=== PATIENT | female | born 1955 | race Caucasian/White ===

== ENCOUNTER → 2016-08-01 | Outpatient (CLI) | payer BC | LOC: LAB 10:19 | DX: E78.2 Mixed hyperlipidemia (principal) ==

== ENCOUNTER 2016-08-07 10:45 | Outpatient (RCR) | payer BC | END 2016-09-26 13:07 | disposition home or self-care (01) | LOC: PT 10:45 | DX: M25.512 Pain in left shoulder (principal); M25.511 Pain in right shoulder ==

== ENCOUNTER → 2016-09-27 | Outpatient (CLI) | payer BC | LOC: LAB 10:03 | DX: E11.9 Type 2 diabetes mellitus without complications (principal) ==

== ENCOUNTER → 2017-02-27 | Outpatient (CLI) | payer BC | LOC: MAMMO 11:52 | DX: Z12.31 Encounter for screening mammogram for malignant neoplasm of breast (principal) | CPT/HCPCS: G0202 ==

== ENCOUNTER → 2017-03-27 | Outpatient (CLI) | payer BC ==
[2017-03-27 12:16] LABS: ALBUMIN 4.5 g/dL (3.5-5.0); BUN/CREATININE RATIO 15.3 (6.0-26.0); CALCIUM 10.5 mg/dL (8.4-10.2); POTASSIUM 4.3 mmol/L (3.6-5.0); TOTAL BILIRUBIN 0.7 mg/dL (0.2-1.3); TOTAL PROTEIN 7.7 g/dL (6.3-8.2)
== END ==
LOC: LAB 10:44
PROVIDERS: Nurse Practitioner Family
DX: Z01.419 Encounter for gynecological examination (general) (routine) without abnormal findings (principal); E11.9 Type 2 diabetes mellitus without complications; I10 Essential (primary) hypertension; E03.4 Atrophy of thyroid (acquired)

== ENCOUNTER → 2018-03-11 | Outpatient (CLI) | payer BC | LOC: MAMMO 11:30 | DX: Z12.31 Encounter for screening mammogram for malignant neoplasm of breast (principal) ==

== ENCOUNTER → 2019-03-15 | Outpatient (CLI) | payer BC | LOC: MAMMO 13:00 | DX: Z12.31 Encounter for screening mammogram for malignant neoplasm of breast (principal) ==

== ENCOUNTER → 2019-03-18 | Outpatient (CLI) | payer BC ==
[2019-03-18 10:13] LABS: EOS # 0.3 (0.04-0.40); HEMATOCRIT 39.8 % (37.0-47.0); HEMOGLOBIN 13.2 g/dL (12.5-16.0); LYMPH# 2.2 (1.50-4.00); MEAN CELL VOLUME 93 fl (78-100); MEAN CORPUSCULAR HEMOGLOBIN 31 pg (27-31); MEAN CORPUSCULAR HGB CONC 33 g/dL (33-37); MEAN PLATELET VOLUME 9.5 fl (7.4-10.4); MONO # 0.5 (0.20-0.80); PLATELET COUNT 317 K/mm3 (130-400); RED BLOOD COUNT 4.29 M/mm3 (4.10-5.30); RED CELL DISTRIBUTION WIDTH 13.2 % (11.5-14.5)
[2019-03-18 10:26] LABS: ALBUMIN 4.6 g/dL (3.4-4.8); POTASSIUM 3.9 mmol/L (3.5-5.1)
[2019-03-18 10:27] LABS: CALCIUM 10.1 mg/dL (8.3-10.5)
[2019-03-18 10:29] LABS: TOTAL PROTEIN 7.8 g/dL (6.2-8.1)
[2019-03-18 10:31] LABS: TOTAL BILIRUBIN 0.7 mg/dL (0.2-1.2)
[2019-03-18 10:32] LABS: URINE APPEARANCE CLEAR; URINE BILIRUBIN NEGATIVE (NEGATIVE); URINE BLOOD 50 ery/uL (NEGATIVE); URINE COLOR YELLOW; URINE GLUCOSE NEGATIVE (NEGATIVE); URINE KETONE NEGATIVE (NEGATIVE); URINE LEUKOCYTE ESTERASE NEGATIVE (NEGATIVE); URINE NITRATE NEGATIVE (NEGATIVE); URINE PROTEIN(semi-quant) TRACE mg/dL (NEGATIVE); URINE UROBILINOGEN NORMAL (NORMAL)
[2019-03-18 23:50] LABS: CREATININE OTHER SOURCE 34 mg/dL (())
== END ==
LOC: LAB 09:59
PROVIDERS: Internal Medicine
DX: Z00.00 Encounter for general adult medical examination without abnormal findings (principal)

== ENCOUNTER → 2020-01-31 | Outpatient (CLI) | payer MEDICARE, BC ==
[2020-01-31 10:49] LABS: ALBUMIN 4.6 g/dL (3.4-4.8)
[2020-01-31 10:50] LABS: CALCIUM 10.3 mg/dL (8.3-10.5)
[2020-01-31 10:51] LABS: TOTAL PROTEIN 7.7 g/dL (6.2-8.1)
[2020-01-31 10:53] LABS: TOTAL BILIRUBIN 0.6 mg/dL (0.2-1.2)
[2020-01-31 10:58] LABS: EOS # 0.3 (0.04-0.40); EOS % 4.6 % (1.0-5.0); HEMATOCRIT 40.8 % (37.0-47.0); HEMOGLOBIN 13.4 g/dL (12.5-16.0); MAGNESIUM 1.6 mg/dL (1.60-2.60); MEAN CELL VOLUME 94 fl (78-100); MEAN CORPUSCULAR HEMOGLOBIN 31 pg (27-31); MEAN CORPUSCULAR HGB CONC 33 g/dL (33-37); MEAN PLATELET VOLUME 9.3 fl (7.4-10.4); MONO # 0.4 (0.20-0.80); NEU # 2.8 (1.40-6.50); PLATELET COUNT 290 K/mm3 (130-400); RED BLOOD COUNT 4.35 M/mm3 (4.10-5.30); RED CELL DISTRIBUTION WIDTH 13.7 % (11.5-14.5); WHITE BLOOD COUNT 5.4 K/mm3 (4.8-10.8)
[2020-01-31 12:39] LABS: ERYTHROCYTE SEDIMENTATION RATE 9 mm/hr (0-30); PH-URINE 5.5 (5.0 - 8.0); URINE APPEARANCE CLEAR; URINE BILIRUBIN NEGATIVE (NEGATIVE); URINE BLOOD NEGATIVE (NEGATIVE); URINE COLOR YELLOW; URINE GLUCOSE NEGATIVE (NEGATIVE); URINE KETONE NEGATIVE (NEGATIVE); URINE LEUKOCYTE ESTERASE NEGATIVE (NEGATIVE); URINE NITRATE NEGATIVE (NEGATIVE); URINE PROTEIN(semi-quant) TRACE mg/dL (NEGATIVE); URINE UROBILINOGEN NORMAL (NORMAL); URINE WBC 0-1 /hpf (0-3)
[2020-01-31 12:40] LABS: URINE MUCUS PRESENT (NOT PRESENT)
[2020-01-31 21:40] LABS: CREATININE OTHER SOURCE 25 mg/dL (())
== END ==
LOC: LAB 10:25
PROVIDERS: Internal Medicine
DX: Z00.00 Encounter for general adult medical examination without abnormal findings (principal); Z12.11 Encounter for screening for malignant neoplasm of colon; I10 Essential (primary) hypertension; E11.9 Type 2 diabetes mellitus without complications; M85.80 Other specified disorders of bone density and structure, unspecified site; E78.5 Hyperlipidemia, unspecified; N30.10 Interstitial cystitis (chronic) without hematuria; E03.9 Hypothyroidism, unspecified

== ENCOUNTER → 2020-08-01 | Outpatient (CLI) | payer MEDICARE, BC | LOC: MAMMO 13:00 | DX: Z12.31 Encounter for screening mammogram for malignant neoplasm of breast (principal) ==

== ENCOUNTER → 2020-08-01 | Outpatient (CLI) | payer MEDICARE, BC ==
[2020-08-01 11:38] LABS: ALBUMIN 4.6 g/dL (3.4-4.8)
[2020-08-01 11:40] LABS: CALCIUM 9.9 mg/dL (8.3-10.5)
[2020-08-01 11:41] LABS: TOTAL PROTEIN 7.8 g/dL (6.2-8.1)
[2020-08-01 11:43] LABS: TOTAL BILIRUBIN 0.6 mg/dL (0.2-1.2)
[2020-08-01 11:47] LABS: MAGNESIUM 1.69 mg/dL (1.60-2.60)
== END ==
LOC: LAB 10:46 → RAD 10:46
PROVIDERS: Internal Medicine
DX: Z00.00 Encounter for general adult medical examination without abnormal findings (principal); Z13.820 Encounter for screening for osteoporosis; E11.9 Type 2 diabetes mellitus without complications; I10 Essential (primary) hypertension; M85.80 Other specified disorders of bone density and structure, unspecified site

== ENCOUNTER → 2020-12-20 | Outpatient (CLI) | payer MEDICARE, BC | LOC: RAD 11:20 | DX: S92.425A Nondisplaced fracture of distal phalanx of left great toe, initial encounter for closed fracture (principal); E11.9 Type 2 diabetes mellitus without complications ==

== ENCOUNTER → 2021-01-29 | Outpatient (CLI) | payer MEDICARE, BC | LOC: RAD 11:33 | DX: S92.902G Unspecified fracture of left foot, subsequent encounter for fracture with delayed healing (principal) ==

== ENCOUNTER → 2021-08-22 | Outpatient (CLI) | payer MEDICARE, BC ==
[2021-08-22 10:30] LABS: ALBUMIN 4.5 g/dL (3.4-4.8); POTASSIUM 4.2 mmol/L (3.5-5.1)
[2021-08-22 10:31] LABS: CALCIUM 10.8 mg/dL (8.3-10.5)
[2021-08-22 10:33] LABS: TOTAL PROTEIN 7.6 g/dL (6.2-8.1)
[2021-08-22 10:34] LABS: TOTAL BILIRUBIN 0.8 mg/dL (0.2-1.2)
[2021-08-22 10:39] LABS: MAGNESIUM 1.64 mg/dL (1.60-2.60)
[2021-08-22 10:58] LABS: URINE APPEARANCE CLEAR; URINE BILIRUBIN NEGATIVE (NEGATIVE); URINE BLOOD 250 ery/uL (NEGATIVE); URINE COLOR YELLOW; URINE GLUCOSE NEGATIVE (NEGATIVE); URINE KETONE NEGATIVE (NEGATIVE); URINE LEUKOCYTE ESTERASE NEGATIVE (NEGATIVE); URINE MUCUS PRESENT (NOT PRESENT); URINE NITRATE NEGATIVE (NEGATIVE); URINE PROTEIN(semi-quant) TRACE (NEGATIVE); URINE UROBILINOGEN NORMAL (NORMAL); URINE WBC 0-1 /hpf (0-3)
[2021-08-22 12:06] LABS: ERYTHROCYTE SEDIMENTATION RATE 21 mm/hr (0-30)
[2021-08-22 12:09] LABS: BASO # 0.03 K/mm3 (0.02-0.10); EOS # 0.11 K/mm3 (0.04-0.40); EOS % 2.1 % (1.0-5.0); HEMATOCRIT 42.2 % (37.0-47.0); HEMOGLOBIN 13.9 g/dL (12.5-16.0); LYMPH# 2.14 K/mm3 (1.50-4.00); MEAN CELL VOLUME 94 fl (78-100); MEAN CORPUSCULAR HEMOGLOBIN 31 pg (27-31); MEAN CORPUSCULAR HGB CONC 33 g/dL (33-37); MONO # 0.44 K/mm3 (0.20-0.80); PLATELET COUNT 302 K/mm3 (130-400); RED BLOOD COUNT 4.49 M/mm3 (4.10-5.30); RED CELL DISTRIBUTION WIDTH 13.3 % (11.5-14.5); WHITE BLOOD COUNT 5.1 K/mm3 (4.8-10.8)
== END ==
LOC: LAB 09:51
PROVIDERS: Internal Medicine
DX: Z12.31 Encounter for screening mammogram for malignant neoplasm of breast (principal); Z12.11 Encounter for screening for malignant neoplasm of colon; E03.4 Atrophy of thyroid (acquired); E11.9 Type 2 diabetes mellitus without complications; I10 Essential (primary) hypertension; E78.2 Mixed hyperlipidemia; D22.62 Melanocytic nevi of left upper limb, including shoulder; N95.2 Postmenopausal atrophic vaginitis; N30.10 Interstitial cystitis (chronic) without hematuria

== ENCOUNTER 2022-02-26 14:01 | Outpatient (RCR) | payer MEDICARE, BC | END 2022-03-27 16:01 | disposition home or self-care (01) | LOC: PT 14:01 | DX: M25.551 Pain in right hip (principal); M25.552 Pain in left hip ==

== ENCOUNTER → 2022-07-24 | Outpatient (CLI) | payer MEDICARE, BC ==
[2022-07-24 10:06] LABS: URINE WBC 0 /hpf (0-3)
[2022-07-24 10:32] LABS: BASO # 0.03 K/mm3 (0.02-0.10); EOS # 0.11 K/mm3 (0.04-0.40); EOS % 2.6 % (1.0-5.0); LYMPH# 1.62 K/mm3 (1.50-4.00); MEAN CELL VOLUME 94 fl (78-100); MEAN CORPUSCULAR HEMOGLOBIN 31 pg (27-31); MEAN CORPUSCULAR HGB CONC 33 g/dL (33-37); MEAN PLATELET VOLUME 9.6 fl (7.4-10.4); MONO # 0.37 K/mm3 (0.20-0.80); NEU # 2.05 K/mm3 (1.40-6.50); PLATELET COUNT 284 K/mm3 (130-400); RED BLOOD COUNT 4.47 M/mm3 (4.10-5.30); WHITE BLOOD COUNT 4.2 K/mm3 (4.8-10.8)
[2022-07-24 10:34] LABS: ALBUMIN 4.7 g/dL (3.4-4.8)
[2022-07-24 10:35] LABS: CALCIUM 10.7 mg/dL (8.3-10.5)
[2022-07-24 10:37] LABS: TOTAL PROTEIN 7.6 g/dL (6.2-8.1)
[2022-07-24 10:38] LABS: TOTAL BILIRUBIN 0.5 mg/dL (0.2-1.2)
[2022-07-24 10:43] LABS: MAGNESIUM 1.72 mg/dL (1.60-2.60)
[2022-07-24 12:22] LABS: POTASSIUM 4.2 mmol/L (3.5-5.1)
[2022-07-24 12:50] LABS: URINE APPEARANCE CLEAR; URINE COLOR YELLOW
[2022-07-24 12:51] LABS: PH-URINE 7.5 (5.0 - 8.0); URINE BILIRUBIN NEGATIVE (NEGATIVE); URINE BLOOD TRACE (NEGATIVE); URINE GLUCOSE NEGATIVE (NEGATIVE); URINE KETONE NEGATIVE (NEGATIVE); URINE LEUKOCYTE ESTERASE NEGATIVE (NEGATIVE); URINE NITRATE NEGATIVE (NEGATIVE); URINE PROTEIN(semi-quant) TRACE (NEGATIVE); URINE UROBILINOGEN NORMAL (NORMAL)
[2022-07-24 14:31] LABS: ERYTHROCYTE SEDIMENTATION RATE 8 mm/hr (0-30)
[2022-07-24 23:32] LABS: CREATININE OTHER SOURCE 72 mg/dL (63-166)
== END ==
LOC: LAB 09:53
PROVIDERS: Internal Medicine
DX: E11.9 Type 2 diabetes mellitus without complications (principal); I10 Essential (primary) hypertension; E78.2 Mixed hyperlipidemia; K90.9 Intestinal malabsorption, unspecified

== ENCOUNTER → 2023-08-20 | Outpatient (CLI) | payer MEDICARE, BC | LOC: MAMMO 10:55 | DX: Z12.31 Encounter for screening mammogram for malignant neoplasm of breast (principal) ==

== ENCOUNTER → 2023-08-26 | Outpatient (CLI) | payer MEDICARE, BC ==
[2023-08-26 09:48] LABS: BASO # 0.02 K/mm3 (0.02-0.10); EOS # 0.15 K/mm3 (0.04-0.40); EOS % 2.4 % (1.0-5.0); HEMATOCRIT 39.5 % (37.0-47.0); HEMOGLOBIN 13.2 g/dL (12.5-16.0); LYMPH# 2.04 K/mm3 (1.50-4.00); MEAN CELL VOLUME 94 fl (78-100); MEAN CORPUSCULAR HEMOGLOBIN 31 pg (27-31); MEAN CORPUSCULAR HGB CONC 33 g/dL (33-37); MEAN PLATELET VOLUME 9.1 fl (7.4-10.4); MONO # 0.53 K/mm3 (0.20-0.80); NEU # 3.58 K/mm3 (1.40-6.50); PLATELET COUNT 301 K/mm3 (130-400); RED BLOOD COUNT 4.22 M/mm3 (4.10-5.30); WHITE BLOOD COUNT 6.3 K/mm3 (4.8-10.8)
[2023-08-26 09:56] LABS: ALBUMIN 4.6 g/dL (3.4-4.8)
[2023-08-26 09:57] LABS: CALCIUM 10.2 mg/dL (8.3-10.5)
[2023-08-26 09:58] LABS: TOTAL PROTEIN 7.7 g/dL (6.2-8.1)
[2023-08-26 10:00] LABS: TOTAL BILIRUBIN 0.6 mg/dL (0.2-1.2)
[2023-08-26 10:05] LABS: MAGNESIUM 1.65 mg/dL (1.60-2.60)
[2023-08-26 10:16] LABS: URINE APPEARANCE CLEAR (CLEAR); URINE COLOR YELLOW (YELLOW)
[2023-08-26 10:17] LABS: PH-URINE 6.5 (5.0 - 8.0); URINE BILIRUBIN NEGATIVE (NEGATIVE); URINE BLOOD NEGATIVE (NEGATIVE); URINE GLUCOSE NEGATIVE (NEGATIVE); URINE KETONE NEGATIVE (NEGATIVE); URINE LEUKOCYTE ESTERASE NEGATIVE (NEGATIVE); URINE NITRATE NEGATIVE (NEGATIVE); URINE PROTEIN(semi-quant) NEGATIVE (NEGATIVE)
[2023-08-26 10:18] LABS: URINE WBC 0-1 /hpf (0-3)
[2023-08-26 22:04] LABS: CREATININE OTHER SOURCE 21 mg/dL (63-166)
== END ==
LOC: LAB 09:29
PROVIDERS: Internal Medicine
DX: I10 Essential (primary) hypertension (principal); E11.9 Type 2 diabetes mellitus without complications; E78.2 Mixed hyperlipidemia

== ENCOUNTER → 2024-07-29 | Outpatient (CLI) | payer MEDICARE, BC ==
[2024-07-29 15:03] LABS: URINE WBC 0 /hpf (0-3)
[2024-07-29 15:20] LABS: PH-URINE 5.5 (5.0 - 8.0); URINE APPEARANCE CLEAR (CLEAR); URINE BILIRUBIN NEGATIVE (NEGATIVE); URINE BLOOD NEGATIVE (NEGATIVE); URINE COLOR YELLOW (YELLOW); URINE GLUCOSE NEGATIVE (NEGATIVE); URINE KETONE NEGATIVE (NEGATIVE); URINE LEUKOCYTE ESTERASE NEGATIVE (NEGATIVE); URINE NITRATE NEGATIVE (NEGATIVE); URINE PROTEIN(semi-quant) NEGATIVE (NEGATIVE)
== END ==
LOC: LAB 12:59
PROVIDERS: Internal Medicine
DX: E11.9 Type 2 diabetes mellitus without complications (principal)